=== PATIENT | male | born 1965 | race Caucasian/White ===

== ENCOUNTER → 2021-01-28 11:46 | Outpatient (CLI) | payer OTHER, SELFPAY ==
[2021-01-28 12:40] LABS: COVID19 -Nasal RAPID Negative (Negative)
== END ==
PROVIDERS: PCP Family Medicine; Visit Provider Student in an Organized Health Care Education/Training Program
DX: Z01.812 Encounter for preprocedural laboratory examination (principal); Z20.822 Contact with and (suspected) exposure to COVID-19
CPT/HCPCS: 87635

== ENCOUNTER 2021-01-29 08:25 | Observation (INO) | payer OTHER, SELFPAY ==
[2021-01-21 12:58] VITALS: BMI 31.6
[2021-01-28] VITALS (16 sets, daily range): BP systolic 98–148; BP diastolic 47–83; PULSE 30–77; RESP 9–35; TEMP 36.2–36.9; O2SAT 93–100; BMI 31.4
[2021-01-28] MEDS: LACTATED RINGERS 1,000 ML 42 ML IV (13:17)
--- NOTE | 2021-01-28 13:19 | SUR.PREOP ---
Right anterior hip hair clipped and washed with Chlorhexadine 2% by Olimpia Strickland CNA.
--- NOTE | 2021-01-28 14:19 | DI.RAD.S_ITS ---
PROCEDURE: XR PELVIS 1-2V INDICATIONS: post-op TECHNIQUE: 1 view(s) of the pelvis acquired. COMPARISON: [facility] [place], [place], XR PELVIS 1 OR 2 VIEWS, 10/07/2020, 14:49. FINDINGS: Bones: No fractures or dislocations. No suspicious bony lesions. Right-sided total hip replacement in good position. Soft tissues: Visualized bowel gas pattern is normal. No suspicious soft tissue calcifications. Overlying soft tissue air consistent with recent surgery. IMPRESSION: Total right hip arthroplasty in good position Dictated by: Wes Álvarez M.D. on 01/28/2021 at 16:56 Approved by: Wes Álvarez M.D. on 01/28/2021 at 16:59
--- NOTE | 2021-01-28 14:23 | PM.PREOP ---
Pre-operative Note COVID-19 COVID-19 status: Negative Result date/Date tested (Pos, Neg/Pending): 01/28/21 Interval Note History & Physical reviewed/Exam performed by Physician: Yes Changes to H&P: No H&P completed within 30 days and has changed as indicated here:: Plan for right anterior BOOKER
[2021-01-28] MEDS: ACETAMINOPHEN 325 MG TABLET 975 MG PO (14:35)
[2021-01-28] MEDS: PREGABALIN 75 MG CAPSULE PO (14:36)
[2021-01-28] MEDS: CELECOXIB 200 MG CAPSULE PO (14:36)
[2021-01-28] MEDS: CEFAZOLIN 2 GM/100 ML FROZ.PIGGY IV (15:00)
[2021-01-28] MEDS: TRANEXAMIC ACID 1,000 MG VIAL 2000 MG INJ ×2 (15:10→16:49)
--- NOTE | 2021-01-28 15:33 | SUR.OPER ---
Supine on padded [place] table with bilateral legs secured in padded positioning boots and suspended in positioning spars, operative leg in traction per surgeon. Head on one pillow. Arm on non-operative side secured on padded armboard <90 degrees abduction. Arm on operative side padded and resting across chest then secured with tape over sheet. Padded perineal post in place per surgeon.
[2021-01-28] MEDS: MORPHINE 4 MG/ML INJ INJ (15:44)
[2021-01-28] MEDS: ROPIVACAINE 0.5% PF 5 MG/ML 20ML VIAL 60 ML INJ (15:44)
[2021-01-28] MEDS: KETOROLAC 30 MG/ML VIAL IV (15:44)
[2021-01-28] MEDS: SODIUM CHLORIDE IRRIG SOLUTION 250 ML, POVIDONE-IODINE SPONGE STICKS 1 APPLIC IRR (15:59)
--- NOTE | 2021-01-28 17:02 | PM.OP.1 ---
Operative Date/Time/Diagnoses Date of procedure: 01/28/21 Time of procedure: 17:02 Pre-op diagnosis: right hip OA Post-op diagnosis: same Procedure & Clinicians Procedure: Right anterior total hip arthroplasty Same procedure as scheduled: Yes Indications: Right hip osteoarthritis resistant to further conservative measures Surgeon: Joshua Pizarro Esthetician And Manager Medical Spa: Demar Spangler Anesthesia Type: General and Spinal Operative Notes Findings: [id number] articulation of the weight-bearing portion of the right hip as well as head neck junction osteophytes. Specimen(s): none sent Prosthetic devices, grafts, tissues, transplants, or devices: Asencio and Nephew 58 mm R3 three-hole cup 1x 25mm screw 1x 20mm screw 50 mm x 36 mm ceramic Delta Biolox liner Size 10 high offset anthology stem 36+ 0 delta Biolox head Estimated Blood Loss (mL): 200 Blood products transfused: none Procedure in detail: Patient was met in the preoperative holding area where the site and side of surgery were marked by . Informed consent had been reviewed and signed in clinic but was also reviewed the preoperative holding area and all last minute questions were answered. Patient was then brought back in the operating room we received a spinal anesthetic and was induced under general anesthesia using transferred onto the [place] table. Both feet were placed in well-padded [place] table boots. The right lower extremity was then prepped and draped in normal sterile fashion. Surgical time-out was performed verifying the site and side of surgery as well as the name of the patient. An incision starting approximately 2 cm distal and 1 cm lateral to the ASIS aiming towards the fibular head was made in the skin using 10. Blade followed by electrocautery dissection down fill of the tensor fascia. A new 10. Blade was then used to incise the tensor fascia and Allis clamp was placed on the medial leaf of the tensor fascia of the tensor muscle self was reflected laterally. A Cobra was then placed over the superior aspect of the femoral neck. A Meyerding retractor was then placed over lateral aspect of the rectus femoris and retracted medially to give us good exposure to the ascending branch the femoral circumflex vessels. These coagulated using electrocautery the 2nd Cobra retractor was then placed on the inferior aspect of the femoral neck. The bent Hohmann was placed over the is anterior lip of the acetabulum to give us good exposure to the capsule. Inverted T-shaped capsulotomy was then performed. The superior and inferior leaflets were tagged with the FiberWire suture. The retractors then placed intracapsularly to give us exposure of the femoral neck. Reciprocating saw was then used to make a femoral neck cut based off of our preoperative template. A corkscrew was then used to remove the femoral head. At this point a soft tissue sleeve was placed into the wound. Retractors then replaced to give us exposure to the acetabulum. Of open our was removed using electrocautery and suction and the remnant of the labrum was read removed using a [place] blade. This point I began reaming with a size 48 mm Reamer down medialized. At this point we then brought in fluoroscopic imaging and began upsize reaming by 2 mm between each Reamer and eventually ending at a size 56 mm Reamer we start to get good contact and fill. This selected 57 mm Reamer and reamed this and selected a 58 mm three-hole cup. This was then packed into place under fluoroscopic guidance. Two screws were then placed through the cup. The delta Biolox liner was then placed making sure that it was well seated within the rim of the acetabular cup and symmetrical around this was then impacted into place. I then turned my attention to the femoral side a femoral elevator hook was placed under the posterior aspect of the femur the femur was externally rotated to 120? extended to the floor and adducted. A bent Hohmann was placed over the superior aspect of the superior leaflet of the capsulotomy and the capsule was further released off the inner shoulder of the greater trochanter to give us of soft spot which a large single point retractors placed over the greater trochanter and Meyerding retractors then placed over the calcar. This gave us our femoral neck exposure. Canal finer was used followed by chili pepper broach followed by broaching from a size 1 band broach of size 1 up sized by 1 until I got to a size 10. I then calcar planed off the size 10 broach and trialed with a high offset neck and a 36+ 0 head. The hip was reduced and was stable to maximal external rotation as well as to 90? of external rotation and extension to the floor. Fluoroscopic and imaging was brought in which showed that we were equal with leg lengths and the stem had good canal fit the femur. The hip was then dislocated the trial components were removed a size 10 high offset anthology stem was impacted into place and a 36+ 0 delta Biolox head was then malleted onto the trunnion and hip was reduced a final time. Betadine solution was then placed into the wound allowed to sit during fluoroscopic imaging final shots were taken. The Betadine solution was then lavaged with copious normal saline the capsulotomy was then repaired using running Ethibond sutur. Local anesthetic was then infiltrated in the periarticular soft tissues. The tensor fascia was then repaired using a running locking 1. Vicryl followed by a 2 Vicryl in the subcutaneous layer followed by running 3-0 Stratafix in subcuticular layer followed by Dermabond and Aquacel dressing. Complications: none Post-operative Condition: stable Disposition: PACU Plan for aftercare: WBAT RLE, 24 hours post-op abx, ASA 81mg BId for 6 weeks for DVT prophylaxis
--- NOTE | 2021-01-28 17:52 | SUR.PHASEI ---
awake, oriented, drowsy and states that he is feeling better. Tolerating PO intake well. Stable. Report called to AC RN. Clothing bag to room with the patient.
--- NOTE | 2021-01-28 18:06 | SUR.PHASEI ---
1754 to room 210, bed down and locked, call light within reach. present. Pt awake, talking. Continues to be pain and nausea free. SCD's on. Informed staff of need for continuous pulse ox (in report and in person). No questions from pt//staff. Stable.
[2021-01-28] MEDS: LACTATED RINGERS 1,000 ML 125 ML IV (18:32)
[2021-01-28] MEDS: ASPIRIN EC 81 MG TABLET PO (21:58)
[2021-01-28] MEDS: DOCUSATE 100 MG CAPSULE PO (21:58)
[2021-01-28 23:31] LABS: BUN Creatinine Ratio 28.4 (6-22); Blood Urea Nitrogen 27 mg/dL (9-20); Calcium 8.6 mg/dL (8.4-10.2); Carbon Dioxide 23 mmol/L (22-32); Chloride 102 mmol/L (98-107); Creatine Kinase 746 U/L (55-170); Estimated Glomerular Filt Rate > 60.0 mL/min (>60); Glucose 169 mg/dL (70-100); HEMOLYSIS < 15 (0-50); Sodium 134 mmol/L (137-145)
[2021-01-28 23:40] LABS: Add Manual Diff / Slide Review NO; Basophils Absolute Auto 0 /uL (0-100); Basophils Percent Auto 0.1 % (0-2); Eosinophils Absolute Auto 0 /uL (0-450); Hematocrit 38.4 % (41-53); Hemoglobin 12.6 g/dL (13.5-17.5); Lymphocytes Absolute Auto 900 /uL (1100-4500); Lymphocytes Percent Auto 5.8 % (25-40); Mean Corpuscular HGB Conc 32.9 % (30-36); Mean Corpuscular Hemoglobin 29.4 PG (26-34); Mean Corpuscular Volume 89.5 fL (80-100); Monocytes Absolute Auto 800 /uL (0-900); Monocytes Percent Auto 4.8 % (3-14); Neutrophils Absolute Auto 14600 /uL (1500-7000); Neutrophils Percent Auto 89.3 % (50-75); Platelet Count 256 X10^3/uL (150-400); Red Blood Cell Count 4.29 X10^6/uL (4.5-5.9); Red Cell Distribution Width 13.9 % (11.6-14.8); White Blood Cell Count 16.3 X10^3/uL (4.5-11.0)
[2021-01-28 23:43] LABS: Troponin I < 0.012 ng/mL (0.01-0.034)
[2021-01-28 23:46] LABS: CKMB % Relative Index 1.1 % (1.5-5.0); Creatine Kinase MB 7.96 ng/mL (<2.37)
--- NOTE | 2021-01-28 23:47 | PC.NURSE ---
Patient was alert and orientated in room. Straight cath performed resulting in 300ml of concentrated urine out. Nurse left room, aid arrived shortly after to find patient tachypenic, bradycardic (30's), and diaphoretic. Heart rate was unable to be felt and apical pulse was unable to be auscultated. B/p was unobtainable. Staff emergency was called on patient, patient was placed in trundler position, fluid bolus started. Patient remained coherent during entire situation. Call placed to Dr. Pizarro regarding current situation, verbal orders for hospital consult was made. Moira made no other suggestions at that time, states I'll leave it up to the hospitalist post consult. This nurse verbally told hospitalist about consult. Patients HR resolved to the 60's, CB (patient is non diabetic), b/p: 107/59.
--- NOTE | 2021-01-28 23:54 | P.CONS_ITS ---
History of Present Illness Consult details Date Patient Seen: 01/28/21 Time Patient Seen: 23:15 Chief complaint: RIGHT BOOKER *OPB* Reason for consult: Vagal response Requesting provider: Joshua Pizarro Narrative: Rapid response was called on this patient. Felipe Brock is a 55 year old male with essential hypertension, status post right hip replacement today and was having problems with urinary retention postoperatively. Nursing when in and did a straight cath on him and drained 300 cc out. After they removed the catheter and the nurse was walking out of the room she turned around, found him bailon, saw that his heart rate dropped down to 30 and was unable to attain a blood pressure on him. Nursing informed me they had get started a bolus on him and that he was awake and talking and that his blood pressure was now 107/59 with a heart rate of 65 which appears to be his baseline. Patient informed me that this has happened a couple of times where he felt like he was starting to black out and thinks that it is psychological response to several medical procedures that were being done when he was awake. This time he stated he was also nauseous but did not vomit and felt very lightheaded and started see black until the people around him will come up. He is not complaining of any pain and he is no longer nauseous. This included being catheterizes for kidney stones, insertion of an IV that was difficult, and a non anesthetized procedure to reduce fracture of his nose when he was younger. Patient is afebrile, current blood pressure is 107/59, heart rate 65, respiratory rate 18, oxygen saturation of 97% on 4 L, he weighs 102.3 kg with a BMI of 31.4. Current labs that were requested to be drawn when I saw him included WBC of 16.3, RBC of 4.29, hemoglobin of 12.6, hematocrit 38.4, neutrophil count is 14,600, sodium 134, potassium 4.0, chloride 102, bicarb 23, BUN 27, creatinine 0.95 with a GFR of 60, glucose is 169, total creatinine kinase was 746, CK-MB is 7.96, troponin is negative. Meds Home Medications and Allergies Home Medications Medication Instructions Recorded Confirmed Type ibuprofen 400 mg PO Q6H PRN 01/21/21 01/28/21 History lisinopril-hydrochlorothiazide 1 tab PO DAILY 01/21/21 01/28/21 History oxycodone 5 mg PO PRN PRN 01/28/21 01/28/21 History Allergies Allergy/AdvReac Type Severity Reaction Status Date / Time No Known Drug Allergies Allergy Verified 01/28/21 12:52 Review of Systems Review of Systems ROS: Yes All systems reviewed with the patient and are negative except as otherwise documented Exam Vital Signs (past 8 hours): - 01/28/21 17:12 01/28/21 17:17 01/28/21 17:23 Temperature 98.4 F Pulse Rate 77 73 66 Respiratory Rate 11 L 11 L 10 L Blood Pressure 110/50 L 107/60 99/53 L Pulse Oximetry 97 96 100 01/28/21 17:28 01/28/21 17:32 01/28/21 17:37 Temperature Pulse Rate 63 65 68 Respiratory Rate 10 L 10 L 12 Blood Pressure 98/53 L 101/53 L 106/58 L Pulse Oximetry 99 99 99 01/28/21 17:50 01/28/21 18:00 01/28/21 18:30 Temperature 98.4 F 97.3 F L Pulse Rate 59 L 57 L 55 L Respiratory Rate 9 L 17 Blood Pressure 109/47 L 115/68 113/64 Pulse Oximetry 98 95 96 01/28/21 19:00 01/28/21 20:00 01/28/21 21:00 Temperature 97.1 F L 97.2 F L Pulse Rate 55 L 66 65 Respiratory Rate 18 18 Blood Pressure 113/68 111/61 118/70 Pulse Oximetry 93 94 94 01/28/21 22:50 Temperature Pulse Rate 65 Respiratory Rate Blood Pressure 107/59 L Pulse Oximetry 98 Oxygen Delivery Method Room Air Oxygen Flow Rate 0 Narrative Exam Narrative: Gen: Alert, oriented, well-developed 55 y.o. male, awake and speaking HEENT: normocephalic, atraumatic, conjunctiva clear, sclera non-icteric, oral mucosa pink and moist Neck: supple, full ROM, no JVD, trachea is midline Resp: Lungs CTA, non-labored breathing CV: RRR, no murmur or rubs Abd: soft, non-tender, normoactive BTs Skin: slightly dusky appearance, no lesions or rashes, dry and intact Neuro: Alert and oriented X 4 w/no focal deficits. Speech clear and coherent. Extremities: moves all 4 extremities, is ambulatory, negative David?s sign Psyche: very pleasant normal mood and affect. Objective Labs Result Diagrams: 01/28/21 23:09 01/28/21 23:09 Labs: Laboratory Results - last 24 hr 01/28/21 01/28/21 23:09 23:09 WBC 16.3 H RBC 4.29 L Hgb 12.6 L Hct 38.4 L MCV 89.5 MCH 29.4 MCHC 32.9 RDW 13.9 Plt Count 256 Neut % (Auto) 89.3 H Lymph % (Auto) 5.8 L Davidson % (Auto) 4.8 Eos % (Auto) 0.0 L Baso % (Auto) 0.1 Neut # (Auto) 07213 H Lymph # (Auto) 900 L Davidson # (Auto) 800 Eos # (Auto) 0 Baso # (Auto) 0 Sodium 134 L Potassium 4.0 Chloride 102 Carbon Dioxide 23 BUN 27 H Creatinine 0.95 Estimated GFR > 60.0 BUN/Creatinine Ratio 28.4 H Glucose 169 H Calcium 8.6 Total Creatine Kinase 746 H CK-MB (CK-2) 7.96 H CK-MB (CK-2) Rel Index 1.1 L Troponin I < 0.012 Assessment & Plan Assessment & Plan narrative: Felipe Brock appears to have sustained a vaso vagal response to having a straight cath done. This is apparently happened to him in the past. He states he is feeling well, no longer feeling lightheaded, nauseous. Vasovagal, acute -we will follow the patient -EKG appeared to be normal -with the exception of an elevated white count and glucose which is likely due to physiological stress, the rest of his labs are within normal limits Thank you for the opportunity to consult on this patient and please feel free to request any more assistance from us. Critical care time: 31 minutes. COVID-19 COVID-19 status: Not tested
[2021-01-29] VITALS: BP 110/67; PULSE 67; RESP 18; TEMP 36.7; O2SAT 96
[2021-01-29] MEDS: CEFAZOLIN 2 GM/100 ML FROZ.PIGGY IV ×2 (00:48→09:14)
[2021-01-29] MEDS: LACTATED RINGERS 1,000 ML 125 ML IV (00:48)
[2021-01-29 04:07] VITALS: BP 113/74; PULSE 70; RESP 18; TEMP 36.6; O2SAT 97
[2021-01-29 06:14] LABS: Hematocrit 36.7 % (41-53); Hemoglobin 12.5 g/dL (13.5-17.5)
--- NOTE | 2021-01-29 07:38 | PC.NURSE ---
Patient bladder scanned at 0600 by FAROOQ WHITAKER, showed 650 mL retained. Pt in no discomfort, VSS, still endorsing numbness lateral aspect of thigh next to surgical site. Denies pain. This RN hesitant to place straight cath due to prior episode resulting in a rapid response from a straight cath. Provider KEVEN called for consult, no orders given. Advised lemon water and toni as a beverage that may assist patient in urination. No toni available- lemon water given with no results. Next shift aware of situation, will continue to monitor.
--- NOTE | 2021-01-29 07:51 | PM.PNPO.1 ---
Subjective Subjective Date Patient Seen: 01/29/21 Time Patient Seen: 07:51 Interval history: Patient states he is doing well and is in minimal discomfort. Patient reports episode of urinary retention yesterday followed by a vasovagal episode documented by Dr. Wilson. Otherwise at this time patient denies fever, chills, nausea, shortness of breath, or chest pain. Patient states he is looking forward to continue to work with physical therapy and ultimately being discharged from hospital. Exam Vital Signs (past 8 hours): - 01/29/21 00:00 01/29/21 04:07 Temperature 98.0 F 97.9 F Pulse Rate 67 70 Respiratory Rate 18 18 Blood Pressure 110/67 113/74 Pulse Oximetry 96 97 Oxygen Delivery Method Nasal Cannula Oxygen Flow Rate 2 Narrative Exam Narrative: 55-year-old male postop day 1 status post right total hip arthroplasty. Patient is resting comfortably in bed, is in no acute distress, is alert and oriented x3. Skin is warm and dry, and the skin surrounding the incision site is free of erythema, warmth, induration, or discharge. Hip flexion performed bilaterally without difficulty or discomfort, left greater than right. Good sensation appreciated throughout the bilateral lower extremities. Ankle inversion, eversion, dorsiflexion, plantar flexion performed bilaterally without difficulty or discomfort. Calves are soft and nontender, negative Homans sign. Capillary refill less than 2 seconds. Palpable pulses appreciated. No other signs of DVT appreciated. Resp Effort & Inspection: normal respiratory effort and able to speak in complete sentences Skin General: no rashes or lesions noted Objective Labs Result Diagrams: 01/29/21 05:50 01/28/21 23:09 Labs: Laboratory Results - last 24 hr 01/28/21 01/28/21 01/29/21 23:09 23:09 05:50 WBC 16.3 H RBC 4.29 L Hgb 12.6 L 12.5 L Hct 38.4 L 36.7 L MCV 89.5 MCH 29.4 MCHC 32.9 RDW 13.9 Plt Count 256 Neut % (Auto) 89.3 H Lymph % (Auto) 5.8 L Wheeler % (Auto) 4.8 Eos % (Auto) 0.0 L Baso % (Auto) 0.1 Neut # (Auto) 20935 H Lymph # (Auto) 900 L Wheeler # (Auto) 800 Eos # (Auto) 0 Baso # (Auto) 0 Sodium 134 L Potassium 4.0 Chloride 102 Carbon Dioxide 23 BUN 27 H Creatinine 0.95 Estimated GFR > 60.0 BUN/Creatinine Ratio 28.4 H Glucose 169 H Calcium 8.6 Total Creatine Kinase 746 H CK-MB (CK-2) 7.96 H CK-MB (CK-2) Rel Index 1.1 L Troponin I < 0.012 PFSH Medical History HTN (hypertension) Kidney stones Nasal fracture Osteoarthritis Right clavicle fracture Surgical History H/O: vasectomy (1996) Hx of lithotripsy Family History (Updated 01/29/21 @ 00:02 by SHABBIR Zhao) Mother Tobacco user Obesity Father Hypertension Social History household members: spouse Smoking Status: Never smoker alcohol intake: current Assessment & Plan Post-op Postoperative Procedures: Procedures Operation Date: 01/28/21 14:15 Actual Procedures Side Surgeon p Total Hip Arthroplasty/Anterior Approach Right Joshua Pizarro MD Postoperative day: 1 Postoperative status: doing well Postoperative plan: ambulate Postoperative plan narrative: Patient is to continue working on ambulation with physical therapy. Patient needs to void by himself prior to discharge. Patient is to continue current pain control regimen as it is adequately controlling patient's pain level. Patient is to continue 81 mg of aspirin twice daily for 6 weeks for DVT prophylaxis. Time Spent With Patient Time with patient: 15-24 minutes Quality VTE Deep Vein Thrombosis/Pulmonary Embolism Present on Admission: No
[2021-01-29 08:09] VITALS: BP 127/77; PULSE 76; RESP 16; TEMP 36.6; O2SAT 96
--- NOTE | 2021-01-29 09:04 | PM.DS.1 ---
History of Present Illness History of Present Illness Date Patient Seen: 01/29/21 Time Patient Seen: 09:04 Chief complaint: RIGHT BOOKER *OPB* Narrative: Refer to previous H PI. Discharge Providers Provider Discharge Date: 01/29/21 Primary care physician: Tito Suggs MD Consults: 01/28/21 14:19 Consult to Anesthesiology Routine Comment: Consulting Provider: Anesthesiologist Reason for consultation: Regional block for post operative pain control 01/28/21 18:14 Consult to Discharge Planning Routine Comment: Consult to Physical Therapy Evaluate & Treat Comment: Physician Instructions: post op BOOKER protocol Consult to Respiratory Therapy Evaluate & Treat Comment: Physician Instructions: Evaluate and treat 01/28/21 22:56 Consult to Hospitalist Service Routine Comment: Consulting Provider: Joshua Pizarro Reason for consultation: bradycardia, hypotensive post-op Has provider been notified: Yes Discharge provider: Darron Narayanan PA-C Summary Hospital Course Discharge Diagnosis: Right hip osteoarthritis Status post right total hip arthroplasty Hospital Course: Patient was admitted to the hospital following the above-listed procedure for the above-listed diagnosis. Following the procedure the patient has been convalescing appropriately and his pain has been controlled with his current pain control regimen. Patient has worked successfully on ambulation with physical therapy and has work on stair [place]. Throughout the course of the patient's stay he has denies fever, chills, nausea, chest pain, or shortness of breath. Dressing over the incision site is to remain intact until his 1st postoperative visit. Status at Discharge Cognitive/behavioral status at discharge: oriented Functional status at discharge: uses cane/walker Overall status at discharge: patient is progressing back to baseline Exam Vital Signs (past 8 hours): - 01/29/21 04:07 Temperature 97.9 F Pulse Rate 70 Respiratory Rate 18 Blood Pressure 113/74 Pulse Oximetry 97 Oxygen Delivery Method Nasal Cannula Oxygen Flow Rate 2 Narrative Exam Narrative: 55-year-old male postop day 1 status post right total hip arthroplasty. Patient is resting comfortably in bed, is in no acute distress, is alert and oriented x3. Skin is warm dry, and the skin surrounding the incision site is free of erythema, warmth, induration, or discharge. Hip flexion performed bilaterally without difficulty or discomfort left greater than right. Good sensation appreciated throughout the bilateral lower extremities to light touch. Calves are soft and nontender, negative Homans sign. Ankle inversion, eversion, dorsiflexion, plantar flexion performed bilaterally without difficulty or discomfort. Capillary refill less than 2 seconds, palpable pulses appreciated. No other signs of DVT appreciated. Resp Effort & Inspection: normal respiratory effort Skin General: no rashes or lesions noted Objective Labs Result Diagrams: 01/29/21 05:50 01/28/21 23:09 Labs: Laboratory Results - last 24 hr 01/28/21 01/28/21 01/29/21 23:09 23:09 05:50 WBC 16.3 H RBC 4.29 L Hgb 12.6 L 12.5 L Hct 38.4 L 36.7 L MCV 89.5 MCH 29.4 MCHC 32.9 RDW 13.9 Plt Count 256 Neut % (Auto) 89.3 H Lymph % (Auto) 5.8 L [place] % (Auto) 4.8 Eos % (Auto) 0.0 L Baso % (Auto) 0.1 Neut # (Auto) 93807 H Lymph # (Auto) 900 L [place] # (Auto) 800 Eos # (Auto) 0 Baso # (Auto) 0 Sodium 134 L Potassium 4.0 Chloride 102 Carbon Dioxide 23 BUN 27 H Creatinine 0.95 Estimated GFR > 60.0 BUN/Creatinine Ratio 28.4 H Glucose 169 H Calcium 8.6 Total Creatine Kinase 746 H CK-MB (CK-2) 7.96 H CK-MB (CK-2) Rel Index 1.1 L Troponin I < 0.012 [facility] Medical History HTN (hypertension) Kidney stones Nasal fracture Osteoarthritis Right clavicle fracture Surgical History H/O: vasectomy (1996) Hx of lithotripsy Family History Mother Tobacco user Obesity Father Hypertension Social History household members: spouse Smoking Status: Never smoker alcohol intake: current Discharge Assessment & Plan Assessment and Plan Assessment: Patient is doing well. Plan of Treatment: Patient is to continue working with physical therapy in outpatient setting following discharge from the hospital. Two weeks following discharge from the hospital the patient is to follow-up in the clinic for his 1st postoperative visit. Dressing is to remain intact until his 1st postoperative visit. Patient is to remain weight-bearing as tolerated with the use of a front wheeled walker. Pain control regimen is to be continued as it is adequately controlling patient's pain level. Aspirin 81 mg to be continued for 6 weeks for DVT prophylaxis. Patient has been instructed to contact clinic with any questions or concerns. If incision site becomes red, swollen, warm, or discharge is appreciated the patient is to contact the clinic. Anterior hip precautions. Discharge Plan Discharge Plan Patient Disposition: Home Provider Discharge Comment: Patient cleared for discharge pending PT approval and the ability to void on his own. Discharge orders & Medications Discharge Orders: Discharge (Order); Ordered 01/29/21 Ordered By: Darron Narayanan Prescriptions: New ibuprofen 400 mg Tablet 400 mg PO Q4HR Qty: 90 RF: 0 oxycodone 5 mg Tablet 10 mg PO Q3HR PRN (Reason: Pain, Severe (7-10)) Qty: 42 RF: 0 acetaminophen 325 mg Tablet 650 mg PO TID Qty: 90 RF: 0 aspirin 81 mg Tablet,Delayed Release (Dr/Ec) 81 mg PO BID Qty: 90 RF: 0 oxycodone 5 mg Tablet 5 mg PO Q3HR PRN (Reason: Pain, Moderate (4-6)) Qty: 42 RF: 0 Continued ibuprofen 200 mg Tablet 400 mg PO Q6H PRN (Reason: Pain) RF: 0 lisinopril-hydrochlorothiazide 20-12.5 mg Tablet 1 tab PO DAILY RF: 0 oxycodone 5 mg tablet 5 mg PO PRN PRN (Reason: Pain (Scale Score 1-3)) RF: 0 Follow up/Referrals: Tito Suggs MD [Primary Care Provider] - Diet/Activity/Treatments Diet: Diet as Tolerated Activity: Weight-bearing as tolerated with front wheeled walker. Anterior hip precautions. Skin/Wound/Dressing Care Report to your healthcare provider any signs of infection, such as:: chills, fever, night sweats, increased pain, unusual drainage and unusual redness Dressing: Dressing over incision site is to remain intact. Refrain from soaking the dressing. If it becomes comes damaged or is removed contact the clinic. Other wound treatment: Refrain from placing topical ointments over the incision site. Visit Report/Discharge Packet Instructions: DI for Hip Replacement Stand Alone Forms: Surgery Discharge Discharge Data Primary Care Provider: Tito Suggs Attending Provider: Joshua Pizarro VTE Deep Vein Thrombosis/Pulmonary Embolism Present on Admission: No
[2021-01-29 09:16] VITALS: TEMP 36.6
[2021-01-29] MEDS: ACETAMINOPHEN 325 MG TABLET 650 MG PO (09:16)
[2021-01-29] MEDS: ASPIRIN EC 81 MG TABLET PO (09:17)
[2021-01-29] MEDS: DOCUSATE 100 MG CAPSULE PO (09:17)
[2021-01-29] MEDS: hydroCHLOROthiazide 25 MG TABLET 12.5 MG PO (09:18)
[2021-01-29 09:20] VITALS: TEMP 36.6
[2021-01-29] MEDS: IBUPROFEN 400 MG TABLET PO (09:20)
--- NOTE | 2021-01-29 09:20 | PT.IIE ---
Current Diagnoses Unilateral primary osteoarthritis, right hip (01/28/21) Surgery Performed Operation Date: 01/28/21 14:15 Actual Procedures p Total Hip Arthroplasty/Anterior Approach(Right) - Joshua Pizarro MD Surgical History (Last Reviewed 01/29/21 @ 09:06 by Darron Narayanan PA-C) H/O: vasectomy (1996) Hx of lithotripsy Medical History (Last Reviewed 01/29/21 @ 09:06 by Darron Narayanan PA-C) HTN (hypertension) Kidney stones Nasal fracture Osteoarthritis Right clavicle fracture Physical Therapy Inpatient Evaluation/Re-Eval M1 PT/OT-IP Prior Functional Status Start: 01/29/21 12:23 Freq: NEEDED Status: Active Protocol: Document 01/29/21 09:20 AB (Rec: 01/29/21 12:40 AB [id number]) Medical Review Prior Functional Status Medical History Reviewed Yes Communication able to make needs known Mobility and Gait pt stated that he is independent with all mobilites and ambulation without AD Social History Household Members spouse Living Arrangements House Number of Floors (Floors) Two Floors Number of Stairs To Enter/Railing? 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 M2 PT-IP Current Condition Start: 01/29/21 12:23 Freq: NEEDED Status: Active Protocol: Document 01/29/21 09:20 AB (Rec: 01/29/21 12:40 AB [id number]) Physical Therapy Current Condition Current Condition Evaluation Date 01/29/21 Treatment Diagnosis s/p R BOOKER anterior approach; difficulty in walking Onset Date 01/28/21 Precautions Anterior Hip Precautions No Hip Extension,No Hip External Rotation Weight Bearing Status Weight Bearing Status Weight Bear as Tolerated Allowed Weight Bearing Amount (enter % RLE WBAT or #) (%) M3 PT-IP Subjective Start: 01/29/21 12:23 Freq: NEEDED Status: Active Protocol: Document 01/29/21 09:20 AB (Rec: 01/29/21 12:40 AB [id number]) Subjective Physical Therapy Visit Type Type Initial Evaluation Visit Start Time 09:20 Visit Stop Time 10:51 Total Visit Minutes 61 Notes pt seen for split visits: 920 to 1010 am and 1040 to 1051 am Number of ROOFING SUPERINTENDENT Visits 0 Physical Therapy Visit Comments Patient Comments pt is agreeable to do PT Therapy Pain Assessment Pain When Pain Assessed At Rest Pain Present Pain Present Pain Reported Location Right Hip Intensity 2 Scale Used Numeric (0 - 10) Pain Management Techniques Apply Cold,Distraction, Modification of Treatment,Re- positioning,Timing of Activity with Medications M4 PT-IP Mobility and Gait Start: 01/29/21 12:23 Freq: NEEDED Status: Active Protocol: Document 01/29/21 09:20 AB (Rec: 01/29/21 12:40 AB [id number]) PT-Bed Mobility Assessment Supine to Sit Supine to Sit Standby Assistance PT-Transfer Assessment Sit to and From Stand Sit to and from Stand Standby Assistance,Contact Guard Assistance Equipment Transfer Assistive Device Gait Belt,Front Wheeled Walker Orthotic/Prosthetic Devices or Brace: No Transfers Transfer Destination Chair Transfer Technique ambulated using FWW Transfer Ability Level of Assist Standby Assistance,Contact Guard Assistance,1 Person Assistance,Use of Upper Extremities Comments Mobility Comments educated pt on R hip anterior precautions. completed supine to sit SBA and was able to sit on EOB SBA. completed sit to stand CGA and ambulated to the chair using FWW CGA. pt agreed to walk more and completed sit<>stand x 2 reps SBA with initial cues but able to complete without after education. ambulated in room using FWW SBA to CGA for safety. pt stated that there is still slight numbness on R anterior thigh area. pt agreed to sit up on chair and positioned on the chair. call light and table placed within reach. Pt stated that they [place] the 520[place] ferry to go home. informed pt to have spouse bring in his FWW and to do caregiver training. Has to check back on pt again in the morning. nurse stated that spouse is in room with the walker and they wanted to [place] the 120 ferry. educated spouse regarding pt's hip precautions. pt up and was walking back to his chair using FWW. pt was able to recall all of his precautions. adjusted pt's FWW and informed pt and spouse to put in skids/tennis balls on posterior legs and agreed. Spouse reconfirmed that they want to catch the 1120 am ferry. pt and spouse has no other concerns. Gait Assessment Gait Gait Assistance Required: Standby Assistance,Contact Guard Assist Distance (Feet) 30 Able to Maintain Weight Bearing Status Yes During Gait Assistive Devices Assistive Device Gait Belt,Front Wheeled Walker Orthotic/Prosthetic Devices or Brace: No Gait Deviations General Gait Pattern Decreased Stride Length, Decreased Feet Clearance Factors Limiting Gait Function Factors Limiting Gait Function Decreased Activity Tolerance, Decreased Strength,Pain,Poor Balance PT-Balance Assessment Sitting Balance and Reactions Static Sitting Balance Ability Good Dynamic Sitting Balance Ability Good Standing Balance and Reactions Static Standing Balance Ability Fair Dynamic Standing Balance Ability Fair Device Used FWW M5 PT-IP Objective Assessments Start: 01/29/21 12:23 Freq: NEEDED Status: Active Protocol: Document 01/29/21 09:20 AB (Rec: 01/29/21 12:40 AB [id number]) Orientation Orientation/Cognition Level of Alertness Alert Orientation Name,Age,Birthday,Month,Date, Year,Day of Week,Place, Situation Language Function Ability No Deficits Noted Safety Awareness Understands Safety Issues Memory Description No Deficits Noted Gross Range of Motion Lower Extremity ROM Assessment Within Functional Limits Strength Lower Extremity Strength Assessment Right Impaired Hip 3+/5 Knee 4+/5 Coordination Assessment Gross Coordination Gross Coordination WNL Sensation Assessment Sensation Gross Sensation Right LE Impaired Sensation Description Numbness Comments Sensation Comments c/o slight R thigh numbness Muscle Tone Muscle Tone WNL Yes M6 PT-IP Treatment Start: 01/29/21 12:23 Freq: NEEDED Status: Active Protocol: Document 01/29/21 09:20 AB (Rec: 01/29/21 12:40 AB [id number]) Physical Therapy Treatment Exercises Exercises Heel Slides Education Education Provided Precautions,Weight Bearing Status,Post-Op Packet,Safety M7 PT-IP Assessment and Plan Start: 01/29/21 12:23 Freq: NEEDED Status: Active Protocol: Document 01/29/21 09:20 AB (Rec: 01/29/21 12:40 AB [id number]) PT Summary Assessment and Plan Potential Rehabilitation Potential Good Status of Condition at Evaluation Stable Summary Impairments Pain,ROM,Strength,Balance, Sensation,Bed Mobility, Transfers,Gait,Activity Tolerance Assessment Summary pt initially requiring CGA but after education and training was able to complete mobilities with SBA. pt plans to go home and spouse will assist pt. pt stated that he is scheduled for outpt PT. Goals Bed Mobility Goal Independent Transfer Goal Independent,Front Wheeled Walker Gait Goal Independent,Front Wheel Walker Gait Distance 200 Days to Meet Goals 3 Frequency of Treatment Frequency Of Treatment Twice a Day Treatment Plan Physical Therapy Treatment Plan Bed Mobility Training,Transfer Training,Gait Training, Therapeutic Exercise,Balance Retraining,Post Op Education, Discharge Planning,Hot or Cold Pack,Neuromuscular Re-ed, Coordination Retraining,Manual Therapy Precautions Anterior Hip Precautions No Hip Extension,No Hip External Rotation Other Precautions RLE WBAT Recommendations To Nursing Amount of Assist Needed 1 Person Assist Discharge Recommendations PT Discharge Recommendations Home with Assistance, Outpatient PT Transportation Needs at Discharge Private Vehicle
[2021-01-29 09:21] VITALS: BP 127/77; PULSE 76
[2021-01-29] MEDS: lisinopriL 20 MG TABLET PO (09:21)
[2021-01-29] MEDS: TAMSULOSIN 0.4 MG CAPSULE PO (09:24)
--- NOTE | 2021-01-29 11:53 | PC.NURSE ---
Patient discharged at 1100. Hip dressing cdi, worked well with physical therapy.
--- NOTE | 2021-01-29 12:23 | CM.DANOTE ---
Discharge Planning/Care Management DCP: assessment: case received and discussed in Team Rounds. Pt was to see PT for new eval today. A check in now shows that pt was cleared for home and did leave at 1100 in time to catch the ferry back to his home on [place]. No d/c concerns were updated by the care team members. CM Discharge Assessment Start: 01/29/21 12:22 Freq: Status: Active Protocol: Document 01/29/21 12:22 ITV (Rec: 01/29/21 12:23 ITV [id number]) Discharge Planning Assessment Advance Directives? No Advance Directives on File No History Provided By Medical Record Prior Living Arrangements House Household Members spouse Discharge Plan Home Pre-Anesthesia Assessment Start: 01/21/21 10:42 Freq: Status: Discharge Protocol: Document 01/21/21 12:58 CAB (Rec: 01/21/21 13:29 CAB [id number]) Pre-Anesthesia Assessment PAC Comment Pt coming from [place], will need RAPID Covid screen dos Patient Information Reviewed Via Phone Assessment Assessment Completed With Patient Diagnostic Results BMP/CMP,CBC,EKG Comment Outside labs/EKG-Reviewed EKG w/Dr. Swanson, ok- scanned-COVID screen dos Primary Care Provider Tito Suggs Medical Clearance Received Yes Seen Specialist in Last 12 Months Yes Specialist Seen Orthopedist Comment PCP visit 07/15/20 clearance scanned to record Primary Language Pal[place]an Life Teacher Required No Height 180.34 cm Weight 102.965 kg Body Mass Index (BMI) 31.6 Hearing Ability Normal Visual Assist Glasses Dentition Type Teeth, Natural Present Barriers to Learning None Hx Anesthesia Reactions No Hx Family Anesthesia Reaction No Hx Malignant Hyperthermia No Hx Blood Transfusions No Anesthesia Review Requested No Fast Food Services Manager No alcohol intake current alcohol intake frequency a few times a month Smoking Status Never smoker Substance Use Type does not use Pain Present Pain Reported Musculoskeletal Symptoms Abnormal Gait,Back Pain, Difficulty Walking,Joint Pain, Neck Pain History of Falling (Recent or History of No ) Patient is completely paralyzed or No completely immobile Mental Status Oriented to own ability Is patient on oxygen? No Does patient have HAYNES/SOB No Hx Sleep Apnea No Currently Taking a Beta [place] No Can You Climb a Flight of Stairs Without Yes SOB Hx Chest Pain No Hx SOB No Hx Syncope or Dizziness No Anti-Coagulant Therapy No Has a Filter Plant Operator No Cardiac Testing No Hx Pacemaker/ICD No Pacemaker Rep Required? No Cardiac Clearance Received Not Applicable Diet Type At Home Regular dysphagia No Urinary Catheter Present No Hx Urinary Self Catheterization No Diabetes No Hx Drug Resistant Organism No Presence of External or Internal Medical No Devices Have you had any close contact with No someone diagnosed with COVID-19? Marital Status Lives With spouse Prior Living Arrangements House Number of Floors (Floors) Two Floors Support System Spouse Does the Patient Have Assistance After Yes Surgery Patient Discharge Plan Description Return Home Comment Pt advised overnight length of stay per surgeon Feels Safe in Current Environment Yes Been Physically Hurt or Threatened By a No Person in Current Environment Do you have thoughts of harming yourself None or others? Are you currently considering suicide? No Do you have a plan to hurt yourself or No Plan others? Do You Have Any Spiritual Beliefs That No May Affect Your HC Choices? Do You Have Any Cultural Practices That No May Affect Your HC Choices? Who Can We Speak to About Patient's Care Family, friends Identifying Code for Release of Patient Declines to issue Information Health Care Proxy/Next of Kin Christie () Health Care Proxy Emergency Contact Name Christie () Emergency Contact Advance Directives? No Power of Calender Machine Operator No PAC Instructions Durable medical equipment, Medications to take/avoid, Nasal antibiotic,No ETOH/ petroleum product on skin DOS, NPO,Pre-surgical wash,Sturdy shoes/comfortable clothes,Do not bring valuables and remove jewelry
== END 2021-01-29 11:10 | disposition home or self-care (01) ==
LOC: OR 13:33 → AC 13:33
PROVIDERS: Nurse Practitioner Family; Admitting Provider Orthopaedic Surgery Adult Reconstructive Orthopaedic Surgery; PCP Family Medicine; Referring Provider Orthopaedic Surgery; Visit Provider Orthopaedic Surgery Adult Reconstructive Orthopaedic Surgery
PROC: (CPT 27130; principal; 2021-01-28 14:15)
DX: M16.11 Unilateral primary osteoarthritis, right hip (principal); I10 Essential (primary) hypertension; M25.751 Osteophyte, right hip; R55 Syncope and collapse; R33.9 Retention of urine, unspecified; Z20.822 Contact with and (suspected) exposure to COVID-19
CPT/HCPCS: 27130; 36415; 72170; 80048; 82550; 82553; 84484; 85014; 85018; 85025; 87635; 93005; 97161; 97530; C1776; G0378; J0690; J1100; J1885; J2250; J2270; J2274; J2405; J2704; J3010